=== PATIENT | female | born 1965 | race Caucasian/White ===

== ENCOUNTER 2018-11-19 18:56 | Emergency (ER) | payer MEDICAID, OTHER ==
[~2018-11-19] VITALS: Ht 162.6 cm; Wt 109.0 kg
[2018-11-19 19:05] VITALS: BP 119/64
--- NOTE | 2018-11-19 19:08 | NUR ---
TO LOBBY A/W BED AMBULATORY
--- NOTE | 2018-11-19 20:23 | NUR ---
53/F PRESENTS WITH PARENTS, C/O N/V/D AND DIFFUSE ABD PAIN, AND HEADACHE, X1 DAY. PT REPORTS SICK CONTACT AT HOME WITH SIMILAR SYMPTOMS. TEMP 100.2 AT THIS TIME, COOLING MEASURES ENSURED. AOX4, GCS 15, SKIN NORMAL WARM AND DRY. HX DM
--- NOTE | 2018-11-19 20:23 | NUR ---
PT TO BED 4.
[2018-11-19] MEDS ORDERED: ONDANSETRON 4 MG ODT PO ONE (20:25)
--- NOTE | 2018-11-19 20:25 | NUR ---
PT WITH N/V AT THIS TIME, ADMINISTERED ZOFRAN 4MG ODT AT THIS TIME
[2018-11-19] MEDS ORDERED: ONDANSETRON 4 MG/2 ML VIAL IVP ONE (20:35)
[2018-11-19] MEDS ORDERED: NACL 0.9% 1,000 ML IV ONE ×2 (20:35→21:40)
[2018-11-19 20:46] LABS: BASOPHILS % (AUTO) 0.1 % (0.0-2.0); EOSINOPHILS # (AUTO) 0.1 K/uL (0-0.4); EOSINOPHILS % (AUTO) 0.9 % (0.0-4.0); HEMATOCRIT 45.4 % (36-48); LYMPHOCYTES # (AUTO) 0.7 K/uL (2.5-16.5); MEAN CORPUSCULAR HEMOGLOBIN 29 pg (27-31); MEAN CORPUSCULAR HGB CONC 33 g/dL (33-37); MEAN CORPUSCULAR VOLUME 87.8 fL (80-94); MONOCYTES # (AUTO) 0.5 K/uL (0.8-1.0); NEUTROPHILS # (AUTO) 11.2 K/uL (1.8-7.7); NEUTROPHILS % (AUTO) 89.3 % (42.2-75.2); PLATELET COUNT (AUTO) 252 K/uL (140-450); RED BLOOD CELL COUNT(AUTO) 5.17 MIL/uL (4.20-5.40); RED CELL DISTRIBUTION WIDTH 13.4 % (11.6-13.7); WHITE BLOOD COUNT (AUTO) 12.6 K/uL (4.8-10.8)
[2018-11-19 20:50] LABS: APPEARANCE,URINE CLEAR (CLEAR); BILIRUBIN,URINE 1+ (NEGATIVE); BLOOD, URINE NEGATIVE (NEGATIVE); COLOR,URINE YELLOW (YELLOW); LEUKOCYTE ESTERASE ,URINE NEGATIVE (NEGATIVE); NITRITE, URINE NEGATIVE (NEGATIVE); UGLUCOSE 3+ (NEGATIVE)
[2018-11-19 20:57] LABS: ANION GAP 16.3 (8-16); CARBON DIOXIDE 25.8 mmol/L (21-32); CREATININE 0.8 mg/dL (0.6-1.3); POTASSIUM 4.1 mmol/L (3.5-5.1)
[2018-11-19 20:58] LABS: LYMPHOCYTES % (AUTO) 5.7 % (20.5-51.1)
[2018-11-19] MEDS ORDERED: ACETAMINOPHEN EXTRA STRENGTH 500 MG TAB PO ONE (21:00)
[2018-11-19 21:04] LABS: ALBUMIN 3.8 g/dL (3.4-5.0); TOTAL BILIRUBIN 0.8 mg/dL (0.0-1.0)
[2018-11-19 22:11] VITALS: BP 105/52
== END 2018-11-19 22:11 | disposition home or self-care (01) ==
LOC: MED 18:56
DX: A08.4 Viral intestinal infection, unspecified (principal); E11.9 Type 2 diabetes mellitus without complications; K21.9 Gastro-esophageal reflux disease without esophagitis
CPT/HCPCS: 36415; 80053; 81003; 81025; 82948; 85025; 96361; 96374; 99283; J2405; J7030; Q0162